=== PATIENT | female | born 1965 | race Caucasian/White ===

== ENCOUNTER 2016-04-26 21:32 | Emergency (ER) | payer SELFPAY ==
[~2016-04-26] VITALS: Ht 160 cm; Wt 118.0 kg
[2016-04-27] MEDS ORDERED: KETOROLAC 30MG/ML VIAL IV STA (00:30)
[2016-04-27 04:23] VITALS: BP 158/88
== END 2016-04-27 04:36 | disposition home or self-care (01) ==
LOC: ER 23:29
DX: S52.501A Unspecified fracture of the lower end of right radius, initial encounter for closed fracture (principal); I10 Essential (primary) hypertension; S62.101A Fracture of unspecified carpal bone, right wrist, initial encounter for closed fracture; W18.39XA Other fall on same level, initial encounter; Y93.89 Activity, other specified; Y99.9 Unspecified external cause status; Y92.89 Other specified places as the place of occurrence of the external cause
CPT/HCPCS: 29125; 73110; 96374; 99284; J1885; Z7610; A4565